=== PATIENT | female | born 1965 | race Two or more races ===

== ENCOUNTER 2021-07-25 21:14 | Emergency (ER) | payer MEDICAID ==
[~2021-07-25] VITALS: Ht 160 cm; Wt 84.1 kg
[2021-07-25] MEDS ORDERED: PSEU120T56 MT (23:35)
[2021-07-25 23:47] VITALS: BP 161/82
== END 2021-07-25 23:49 | disposition home or self-care (01) ==
LOC: ER 21:14
DX: J06.9 Acute upper respiratory infection, unspecified (principal); I10 Essential (primary) hypertension; Z20.822 Contact with and (suspected) exposure to COVID-19
CPT/HCPCS: 71045; 87426; 99284